=== PATIENT | male | born 1945 | race Caucasian/White ===

== ENCOUNTER → 2016-09-08 | Outpatient (CLI) | payer OTHER, BC ==
[~2016-09-08] MED LIST: ATEN-173 PO; ATEN50TA8 PO; ATOR-22 PO; HYDR-5688 PO
--- NOTE | 2016-09-08 10:57 | DIAGNOSTIC IMAGING REPORT ---
EXAMINATION: RENAL ULTRASOUND CLINICAL HISTORY: Kidney stones. COMPARISON STUDY: CT scan dated 07/08/2014 FINDINGS: The right kidney measures 11.9 cm. The left kidney measures 12.1 cm. There is no evidence of hydronephrosis. There is a 14 mm lower pole right renal cyst. There is a 26 mm upper pole left renal cyst and 19 mm mid pole left renal cyst. There are no shadowing foci suspicious for calculi. The bladder was not well-distended. Bilateral ureteral jets were visualized. IMPRESSION : 1. Bilateral renal cysts 2. No evidence of hydronephrosis 3. No calculi identified ultrasonographically Electronically signed by: Ryan Oreilly M.D. 09/08/2016 10:56 AM Dictated Date/Time: 09/08/2016 10:55 AM
== END | disposition home or self-care (01) ==
LOC: C.ULTRBC 10:17
PROVIDERS: ATTEND Family Medicine
DX: N28.1 Cyst of kidney, acquired (principal); Z87.442 Personal history of urinary calculi

== ENCOUNTER → 2016-09-23 | Outpatient (CLI) | payer OTHER, BC ==
--- NOTE | 2016-09-23 16:45 | DIAGNOSTIC IMAGING REPORT ---
LEFT RIBS UNILATERAL WITH PA CHEST CLINICAL HISTORY: LBP pain COMPARISON STUDY: None FINDINGS: Negative left ribs. Negative chest. IMPRESSION: Negative study Electronically signed by: Zachariah Pena M.D. 09/23/2016 4:43 PM Dictated Date/Time: 09/23/2016 4:42 PM
== END | disposition home or self-care (01) ==
LOC: C.RAD1850 16:24
PROVIDERS: ATTEND Student in an Organized Health Care Education/Training Program
DX: M54.5 Low back pain (principal)

== ENCOUNTER 2016-10-20 14:19 | Emergency (ER) | payer OTHER, BC ==
[~2016-10-20] VITALS: Ht 185.4 cm; Wt 96.8 kg
[~2016-10-20 14:19] MED LIST changes: -ATEN50TA8 PO; -HYDR-5688 PO
[2016-10-20 14:26] VITALS: TEMP 36.7; Ht 185.4 cm; Wt 96.8 kg
--- NOTE | 2016-10-20 15:02 | DIAGNOSTIC IMAGING REPORT ---
LEFT RIBS UNILATERAL WITH PA CHEST CLINICAL HISTORY: fall L rib pain trauma. Pain. COMPARISON STUDY: 09/23/2016 FINDINGS: Nondisplaced cortical fracture left eighth ninth 10th and 11th ribs. The remaining ribs are unremarkable. No evidence of pneumothorax. IMPRESSION: Nondisplaced fractures left eighth ninth 10th and 11th ribs. No evidence for pneumothorax. Electronically signed by: Zachariah Pena M.D. 10/20/2016 3:00 PM Dictated Date/Time: 10/20/2016 2:58 PM
--- NOTE | 2016-10-20 15:08 | EMERGENCY ROOM VISIT NOTE ---
ED Visit Note First contact with patient: 14:29 Staff note: I have reviewed the Patients chart and have discussed this case with my PA. I generally agree with the ED note and findings.
[2016-10-20] MEDS ORDERED: ATEN50TA8 PO (15:17)
[2016-10-20 15:24] VITALS: BP 122/68; PULSE 71; O2SAT 95
[2016-10-20] MEDS ORDERED: HYDR-5688 PO (15:25)
--- NOTE | 2016-10-21 10:45 | EMERGENCY ROOM VISIT NOTE ---
ED Visit Note First contact with patient: 14:29 Chief Complaint: Left rib pain. History of Present Illness: Mr. Vaughn is a 70-year-old white male who ambulates into the ED complaining of left sided rib pain. Patient reports approximately 7 AM this morning, approximately 7 hours ago, he was pulling himself out of the tub when his feet slipped and he fell back into the tub striking his left lateral ribs on the side of the tub. Since that time he reports she's been having left sided rib pain. Currently he describes the pain as a sharp sensation. He rates his discomfort 7 /10. His pain is nonradiating. His pain worsens with palpation and deep inspiration. He has not identified any alleviating factors related to the pain. He reports he has not taken any medication for pain prior to arrival at the hospital. He denies any associated symptoms including fevers, chills, sweats, cough, shortness of breath, wheezing, chest pain, abdominal pain, nausea , vomiting, bloody urine, bloody stools, back pain, flank pain. Review of Systems: As noted above in history of present illness. 8 body systems were reviewed and found to be negative as noted above. Past Medical History: Urinary symptoms, kidney stones, hypertension, dyslipidemia, status post cholecystectomy, unspecified hip replacement, unspecified lumbar back surgery. Current Medications: Atenolol, Lipitor. Allergies to Medications: Patient denies. Social History: Patient is currently retired; he feels safe in his home environment; he denies tobacco use; he admits to alcohol use. Physical Examination: Vital Signs: Date Time Temp Pulse Resp B/P Pulse Ox O2 Delivery O2 Flow Rate FiO2 10/20/16 15:24 71 18 122/68 95 Room Air 10/20/16 14:26 36.7 72 16 121/74 94 Room Air GENERAL: 70-year-old male in moderate distress due to pain, nontoxic-appearing, afebrile and hemodynamically stable. NEUROLOGICAL: Awake, alert and oriented to person, place and time. Answering questions appropriately and following commands. Normal gait. Good hand eye coordination. No focal motor or sensory deficits. SKIN: Warm, dry and pink. No soft tissue trauma noted. HEENT: Atraumatic and normocephalic. BACK: No tenderness over the bony cervical, thoracic and lumbar spine. No CVA tenderness. THORAX: Lungs sounds are clear to auscultation and equal bilaterally with symmetrical chest wall. No wheezing, rales or rhonchi. Moderate tenderness over the lateral left chest wall from ribs 5 through 12. I do not appreciate any bony deformity, bony crepitus or subcutaneous air. There is no increased respiratory effort or rate. HEART: Regular rate and rhythm. No gallops, rubs or murmurs are appreciated. ABDOMEN: Flat, soft and nontender. Positive bowel sounds in all quadrants. No guarding, rigidity or organomegaly. EXTREMITIES: Moves all extremities well on command and with purpose. All distal neurovascular statuses are intact and equal bilaterally. ED Course: Patient is assessed as noted above. Patient was offered pain medications and refused. PA Chest with Left Rib X-Rays: Were read by myself and the radiologist showing no acute infiltrates, effusions or pneumothorax. Normal heart silhouette. Nondisplaced fractures of the lateral aspect of the eighth, ninth, 10th and 11th ribs. Patient's case was reviewed with Dr. Porter; independently assessed the patient we agreed on diagnostic approach, treatment, disposition and plan. Patient was educated about tonight's findings and instructed on his treatment plan; he verbalized understanding and agreement with this plan. Clinical Impression: Left sided rib fractures. Disposition: Patient discharged home in stable condition; prior to departure he was reassessed and subjectively reported he was feeling better and rated his discomfort 4/10. Plan: Comfort measures were discussed with the patient including rest, ice and a sliding pain medication scale of ibuprofen, acetaminophen and [place]; appropriate narcotic precautions were discussed with the patient. Patient was given an inspirometer and instructed on their use. Patient was encouraged to follow-up with family physician for recheck in 3-4 days. Patient was encouraged return the ED for worsening pain, fevers, cough, wheezing , shortness of breath or any new/concerning symptoms.
== END 2016-10-20 15:26 | disposition home or self-care (01) ==
LOC: C.EDB 14:21 → C.EDD 15:26
DX: S22.42XA Multiple fractures of ribs, left side, initial encounter for closed fracture (principal); W18.2XXA Fall in (into) shower or empty bathtub, initial encounter; Y92.002 Bathroom of unspecified non-institutional (private) residence as the place of occurrence of the external cause; Y93.E1 Activity, personal bathing and showering; I10 Essential (primary) hypertension; E78.5 Hyperlipidemia, unspecified; Z87.442 Personal history of urinary calculi

== ENCOUNTER → 2017-09-29 | Outpatient (CLI) | payer OTHER, BC ==
[~2017-09-29] MED LIST changes: -ATEN-173 PO; +ATEN50TA8 PO
--- NOTE | 2017-09-29 18:05 | DOBUTAMINE ECHO ---
*NOTICE TO RECEIVING [employer] This information is strictly Confidential and protected under [place] law. [place] law prohibits you from making any further disclosure of this information unless further disclosure is expressly permitted by the written consent of the person to whom it pertains or is authorized by law. A general authorization for the release of medical or other information is not sufficient for this purpose. Hospital accepts no responsibility if the information is made available to any other person, INCLUDING THE PATIENT. Interpretation Summary * Name: BOOM WYATT Study Date: 09/29/2017 08:29 AM BP: 137/80 mmHg * Patient Location: [facility] HR: 62 * : 1945 (M/d/yyyy) Gender: Male Height: 72 in * Age: 71 yrs Ethnicity: [place] Weight: 216 lb * Ordering Physician: Justin Baker * Referring Physician: Justin Baker * Performed By: Damari Killian RDCS * * Reason For Study: CHEST PAIN * BSA: 2.2 m2 * -- Conclusions -- * There is mild concentric left ventricular hypertrophy. * Left ventricular systolic function is normal. * Grade I diastolic dysfunction, (abnormal relaxation pattern). * Right ventricular systolic pressure is normal. * Hypertensive response to exercise * Abnormal EKG response exercise without development of wall motion abnormalities suggesting a low risk study for inducible ischemia. Procedure Details * ECHOEX, CPT #06200 Left Ventricular Findings with Stress * Hypertensive response to exercise Abnormal EKG response exercise without development of wall motion abnormalities suggesting a low risk study for inducible ischemia. Left Ventricle * The left ventricle is normal in size. * There is mild concentric left ventricular hypertrophy. * Ejection Fraction = 55-60%. * Left ventricular systolic function is normal. * Grade I diastolic dysfunction, (abnormal relaxation pattern). * The left ventricular wall motion is normal at rest. Right Ventricle * The right ventricle is normal in size and function. * The right ventricular systolic function is normal as assessed by tricuspid annular plane systolic excursion (TAPSE) (normal >1.5 cm). Atria * The left atrial size is normal. * Right atrial size is normal. Mitral Valve * The mitral valve anatomy is normal. * Significant mitral regurgitation is absent. Tricuspid Valve * The tricuspid valve is not well visualized, but is grossly normal. * There is mild tricuspid regurgitation. * Right ventricular systolic pressure is normal. Aortic Valve * The aortic valve is normal in structure and function. * The aortic valve is trileaflet. * No hemodynamically significant valvular aortic stenosis. * There is no significant aortic regurgitation. Great Vessels * The aortic root is normal size. Pericardium * There is no pericardial effusion. Stress Parameters * Normal baseline electrocardiogram. * [address] segment depression at peak exertion * The stress portion of this study was personally supervised by the undersigned interpreting physician. * Rest heart rate was '60' BPM. * Rest blood pressure was '137/80' * Maximum heart rate achieved was 137 bpm. * Maximum heart rate was 91 % of maximum age-predicted heart rate. * Maximum blood pressure was '203/79' * Total exercise time was '6:11' * Maximum exercise MET level achieved was '7.20' METS * Maximum treadmill speed was '3.40' miles per hour. * Maximum treadmill elevation was '14'% grade. * Exercise was terminated due to 'ACHIEVING TARGET HR' Left Ventricular Findings with Stress * Baseline EKG was normal There was [address] segment depression at peak exertion Baseline echocardiogram was normal There was normal augmentation of all [place] without development of inducible wall motion abnormalities at peak exertion There is a hypertensive response to exercise No arrhythmias Test was stopped due to dyspnea Cheung treadmill score: 1 (moderate risk) MMode 2D Measurements and Calculations IVSd 1.2 cm IVSs 1.7 cm LVIDd 4.5 cm LVIDs 3.1 cm LVPWd 1.5 cm LVPWs 2.3 cm IVS/LVPW 0.81 FS 31.7 % EDV(Teich) 93.4 ml ESV(Teich) 37.6 ml EF(Teich) 59.8 % EDV(cubed) 92.4 ml ESV(cubed) 29.5 ml EF(cubed) 68.1 % % IVS thick 42.9 % % LVPW thick 55.0 % LV mass(C)d 234.6 grams LV mass(C)dI 106.6 grams/m\S\2 LV mass(C)s 274.0 grams LV mass(C)sI 124.5 grams/m\S\2 SV(Teich) 55.9 ml SI(Teich) 25.4 ml/m\S\2 SV(cubed) 62.9 ml SI(cubed) 28.6 ml/m\S\2 Ao root diam 3.4 cm Ao root area 9.3 cm\S\2 LA dimension 3.7 cm LA/Ao 1.1 LVAd ap2 30.5 cm\S\2 LVLd ap2 7.8 cm EDV(MOD-sp2) 96.3 ml EDV(sp2-el) 101.0 ml LVAs ap2 17.7 cm\S\2 LVLs ap2 6.6 cm ESV(MOD-sp2) 37.8 ml ESV(sp2-el) 40.1 ml EF(MOD-sp2) 60.8 % EF(sp2-el) 60.3 % SV(MOD-sp2) 58.5 ml SI(MOD-sp2) 26.6 ml/m\S\2 SV(sp2-el) 60.9 ml SI(sp2-el) 27.7 ml/m\S\2 Doppler Measurements and Calculations MV E max delia 66.1 cm/sec MV A max delia 89.8 cm/sec MV E/A 0.74 MV dec time 0.29 sec Ao V2 max 113.0 cm/sec Ao max PG 5.1 mmHg Ao max PG (full) 3.7 mmHg LV V1 max PG 1.4 mmHg LV V1 max 59.3 cm/sec TR max delia 185.5 cm/sec
== END | disposition home or self-care (01) ==
LOC: C.CPL 08:58
PROVIDERS: ATTEND Family Medicine
DX: R07.9 Chest pain, unspecified (principal)

== ENCOUNTER → 2017-10-20 | Outpatient (CLI) | payer OTHER, BC | END | disposition home or self-care (01) | LOC: C.PATHSPEC 17:28 | PROVIDERS: ATTEND Urology | DX: N20.0 Calculus of kidney (principal); R31.0 Gross hematuria; R39.15 Urgency of urination; N40.1 Benign prostatic hyperplasia with lower urinary tract symptoms ==

== ENCOUNTER → 2017-10-26 | Outpatient (CLI) | payer OTHER, BC ==
[2017-10-26 16:50] LABS: ALBUMIN 3.9 gm/dl (3.4-5.0); ALT/SGPT 37 U/L (12-78); BLOOD UREA NITROGEN 21 mg/dl (7-18); CALCIUM 9.1 mg/dl (8.5-10.1); CARBON DIOXIDE 26 mmol/L (21-32); CREATININE 1.15 mg/dl (0.60-1.40); GLUCOSE 124 mg/dl (70-99); POTASSIUM 4.1 mmol/L (3.5-5.1); SODIUM 141 mmol/L (136-145)
[2017-10-26 16:55] LABS: ALKALINE PHOSPHATASE 76 U/L (45-117); AST/SGOT 18 U/L (15-37); TOTAL PROTEIN 7.4 gm/dl (6.4-8.2)
== END | disposition home or self-care (01) ==
LOC: C.LABBFT 15:29
PROVIDERS: ATTEND Urology
DX: N40.1 Benign prostatic hyperplasia with lower urinary tract symptoms (principal); R31.0 Gross hematuria; N20.0 Calculus of kidney; R39.15 Urgency of urination

== ENCOUNTER → 2017-11-10 | Outpatient (CLI) | payer OTHER, BC ==
[~2017-11-10] MED LIST changes: +OPTIRAY 320 IV PRN
--- NOTE | 2017-11-10 11:18 | DIAGNOSTIC IMAGING REPORT ---
CT UROGRAM CLINICAL HISTORY: Hematuria. Nephrolithiasis. COMPARISON STUDY: Abdominal CT dated 07/16/2014. TECHNIQUE: Before and following the IV administration of 120 cc of Optiray 320, CT urogram of the abdomen and pelvis is performed from the lung bases to the proximal femora. Images are reviewed in the axial, sagittal, and coronal planes. IV contrast was administered without complication. A dose lowering technique was utilized adhering to the principles of ALARA. The unenhanced series is degraded by streak artifact from the right arm which could not be elevated above the abdomen. CT DOSE: 1868.14 mGycm FINDINGS: Lung bases: The heart is normal in size and without pericardial effusion. The coronary arteries are densely calcified. A small fat-containing Bochdalek hernia is seen at the left lung base. The lung bases are otherwise clear. Liver: The contrast-enhanced liver is normal in size, contour, and attenuation. There is no intrahepatic biliary ductal dilatation. The hepatic veins and portal veins are patent. Gallbladder: Surgically absent noting clips in the gallbladder fossa. Spleen: Normal in size and attenuation. Pancreas: Unremarkable. Adrenal glands: Unremarkable. Kidneys and ureters: The contrast enhanced kidneys are atrophic and without hydronephrosis. There are least 3 small nonobstructing right renal calculi measuring up to 4 mm. A 3 mm nonobstructing calculus is seen in the lower pole of the left kidney. The kidneys enhance and excrete symmetrically. There is no enhancing renal cortical mass lesion identified. Small bilateral renal cysts measure up to 3.0 cm. There is no evidence of urothelial lesion within the renal pelvis bilaterally or along the course of either ureter. Abdominal vasculature: The abdominal aorta is normal in course and caliber noting moderate atherosclerotic calcification. Bowel: There is mild colonic diverticulosis without CT evidence of acute diverticulitis. No bowel obstruction is identified. The appendix is well-visualized and normal. Peritoneum: There is no intraperitoneal free air or abdominal ascites. There is a small fat-containing umbilical hernia. Lymphadenopathy: None. Pelvic viscera: Evaluation of the pelvis is degraded by streak artifact from a right hip arthroplasty. The bladder, prostate, and seminal vesicles are normal as visualized. Skeletal structures: The skeletal structures are osteopenic. Degenerative changes noted throughout the lumbar spine. There are postoperative changes from laminectomy and posterior fusion from L4 -S1. No lytic or blastic lesions are seen. Right hip arthroplasty is in place. IMPRESSION: 1. There are bilateral nonobstructing renal calculi. 2. The kidneys demonstrate cortical atrophy and are without hydronephrosis. 3. There is no enhancing renal cortical mass. No evidence of urothelial lesion is seen in either kidney or along the course of the ureters. 4. The bladder is normal as visualized. 5. Mild colonic diverticulosis without CT evidence of acute diverticulitis. 6. Additional findings as above. Electronically signed by: Jan Canela M.D. 11/10/2017 11:16 AM Dictated Date/Time: 11/10/2017 11:05 AM
== END | disposition home or self-care (01) ==
LOC: C.CTS 10:26
PROVIDERS: ATTEND Urology
DX: N20.0 Calculus of kidney (principal); R31.0 Gross hematuria; N26.1 Atrophy of kidney (terminal)

== ENCOUNTER 2024-03-26 16:31 | Observation (INO) ==
--- NOTE | 2024-03-26 16:53 | Emergency Department Note ---
Impression & Plan Stroke-like symptoms, Hypomagnesemia, Cerebral aneurysm ED Provider Note NAME: BOOM WYATT Jr AGE: 78 SEX: M : 1945 ARRIVES VIA: Walk-In INFORMANT: Patient, triage note ED PROVIDER(S): Alek Carlton MD CHIEF COMPLAINT: Hand weakness, numbness MEDICAL DECISION MAKING: Patient presents due to concern for hand weakness and numbness. IV was established and blood work is obtained along CT head and CT angiography of the head and neck. Patient has a normal white count mild anemia hemoglobin of 13.6 with a normal platelet count. Kidney function was unremarkable. Magnesium of 1.6. CT head and angiography is negative for ICH or obvious stroke. M1 saccular aneurysm noted. I did speak with on-call neurology Dr. Martin who stated that this may be followed no acute treatment required at this time. Patient based on ABCD 2 score is moderate risk patient was ordered aspirin 324. I did speak with the on-call hospital service Maynor Shields PA-C and Dr. Rodgers Discussion w/ other healthcare providers: Maynor Shields PA-C and Dr. Rodgers. Prior /Outside records reviewed: None Differential diagnosis: [Infection, dehydration, metabolic abnormality, hypo/hyperglycemia, electrolyte imbalance, anemia, UTI, pneumonia, thyroid dysfunction among others were considered. Diagnostics, as interpreted by me: ECG: Normal sinus rhythm, rate of 73, normal pulse, normal axis. No significant change for comparison August 01, 2019 Cardiac monitoring: An order was placed for continuous cardiac monitoring. The monitor shows a rate of 75 with sinus rhythm. Patient was placed on pulse oximetry Medical decision rules: ABCD2 score Imaging studies: I informally interpreted the patient's CT head does not show obvious ICH with formal report to follow. HPI: Patient presents due to concern for left upper extremity decree sensation and cramping with associated heaviness that began around 1 hour prior to arrival. The episode lasted approximately 5 minutes in duration. The patient reports that he felt as though his arm was very big and heavy at the time that this occurred. He denies any trauma. No increase in activity or overuse. The patient denies any prior history of stroke or mini stroke no chest pains or shortness of breath. Patient does take something for cholesterol but does not take a baby aspirin. He also does report that he had a prior history of shingles to the left axilla as well as the history of a lot of golf playing and is unsure as amount of this is contributory. The patient states that he was unable to make a fist and felt like he was holding a softball at the time of this occurred. Patient denies any slurred speech or facial droop. He did have a brief episode that was may be seconds of decree sensation in the left face. PAST MEDICAL HISTORY: See Below PAST SURGICAL HISTORY: See Below SOCIAL HISTORY: See Below HOME MEDICATIONS: See Below ALLERGIES: See Below VITALS: See Below PHYSICAL EXAMINATION: GENERAL: NAD, non-toxic. EYE EXAM: Normal conjunctiva. PERRL, no anisocoria and EOM's grossly intact w/o pain. OROPHARYNX: Moist mucus membranes, grossly normal dentition. NECK: Trachea midline, no stridor. LUNGS: Clear to auscultation. Normal chest wall mechanics. HEART: NSR, no MRG. ABDOMEN: Abdomen soft, non-tender, no masses, no rebound or guarding. BACK: No CVA TTP. SKIN: No rashes and no bruising. UPPER EXTREMITIES: Upper extremities are grossly normal. LOWER EXTREMITIES: Grossly normal, no edema. NEURO EXAM: A&O x3, cranial nerves II-XII grossly intact, normal speech, moves all 4 extremities. Past Med/Surg History Problem List (Updated 03/26/24 @ 22:29 by Alek Carlton MD) Cerebral aneurysm (Acute) Hypomagnesemia (Acute) Stroke-like symptoms (Acute) Urinary frequency Bilateral kidney stones Hypertension (Chronic) Dyslipidemia (Chronic) Insomnia (Chronic) BPH (benign prostatic hyperplasia) (Chronic) Followed by urology. Erectile dysfunction Medical History History of skin cancer removed 12 years ago Frequent unifocal PVCs Laryngopharyngeal reflux Paralysis of right vocal fold Dysphonia Posterior glottic stenosis Evaluated by ENT for dysphonia within last 2 years, found to have significant post glottic stenosis. Should be evaluated emergently for any respiratory sxs if should arise in the future. Continuing workup with imaging Nephrolithiasis passed on own and also has current stones, no issues with them currently Urinary urgency Post herpetic neuralgia Surgical History History of hip replacement, total right, 2013 History of back surgery 2014, L3-5 Fusion History of cholecystectomy Family History Mother Breast cancer Father Dementia Hearing loss Brother Hearing loss Kidney stones Myocardial infarction Daughter Kidney stones Other No family history of adverse response to anesthesia No family history of bleeding disorder Denies family history of Ovarian cancer Prostate cancer Diabetes Heart disease Lung cancer Colorectal cancer Hypertension Stroke Asthma Social History Smoking Status: Never smoker Second Hand Exposure: No; Do You Dip or Chew Tobacco: No; Hx Alcohol Use: Yes Alcohol type: beer Alcohol Intake Frequency: 2-3 x/Week Alcohol Intake Frequency Comment: beer every other day Hx Substance Use: No Preferred Language: Croatian Visual Impairment: Limited Hearing Ability: Hard of Hearing Retail Receiving Clerk Required: No Beliefs That Will Affect Care: None marital status: Current Living Situation: Alone current occupational status: retired How many Children do You have: 3 Feels Safe at Home: Yes Childhood Exposure to Second-Hand Smoke: No Diet: regular caffeine: Yes (soda occasionally ) Dental Care, Regularly: Yes Physical Activity Frequency: Daily Physical Activity Frequency Comment: walks and play golf in summer Seatbelt Use: always Sunscreen Use: No Assistive Devices: None Allergies Allergies Allergy/AdvReac Type Severity Reaction Status Date / Time No Known Drug Allergies Allergy Verified 03/26/24 18:34 Home Meds Home Medications Medication Instructions Recorded Confirmed atorvastatin 20 mg tablet 0 mg PO QAM 03/26/24 03/26/24 Previous Rx's Medication Instructions Recorded atenolol 50 mg tablet 25 mg (1/2 x 50 mg) PO QPM #45 tabs 07/30/23 finasteride 5 mg tablet 5 mg PO QAM #90 tabs 12/03/23 omeprazole 20 mg tablet,delayed 20 mg PO BID PRN K21.9 #180 tabs 01/18/24 release zolpidem 10 mg tablet 10 mg PO ONCE PRN insomnia #30 tabs 01/18/24 tamsulosin 0.4 mg capsule 0.4 mg PO QPM #90 caps 01/19/24 Results & Data (ED) Vital Signs Vital Signs - 24 hr 03/26/24 16:36 03/26/24 16:53 03/26/24 17:01 Temperature 36.6 C Temperature Source Temporal Artery Scan Pulse Rate 77 68 Pulse Rate [Apical] Pulse Rhythm Regular Respiratory Rate 16 18 Respiratory Effort / Characteristics Non-Labored Spontaneous Non-Labored Respiratory Depth Normal Normal Respiratory Pattern Regular Blood Pressure 141/78 H Blood Pressure [Right Arm] Blood Pressure Mean 99 Blood Pressure Mean [Right Arm] Blood Pressure Position [Right Arm] Pulse Oximetry 94 94 Oxygen Delivery Method Room Air Room Air Sepsis Recent Fever Within 48 Hours No Sepsis New/Unexplained Change in Mental Status N/A Sepsis Action Taken by Nursing No Action Required 03/26/24 17:05 03/26/24 18:37 03/26/24 19:33 Temperature Temperature Source Pulse Rate 68 66 Pulse Rate [Apical] 69 Pulse Rhythm Respiratory Rate 21 20 Respiratory Effort / Characteristics Non-Labored Spontaneous Respiratory Depth Normal Respiratory Pattern Regular Blood Pressure 139/76 Blood Pressure [Right Arm] 155/81 H Blood Pressure Mean 97 Blood Pressure Mean [Right Arm] 105 Blood Pressure Position [Right Arm] Semi-fowlers Pulse Oximetry 94 96 Oxygen Delivery Method Room Air Sepsis Recent Fever Within 48 Hours Sepsis New/Unexplained Change in Mental Status Sepsis Action Taken by Nursing 03/26/24 21:00 Temperature Temperature Source Pulse Rate 62 Pulse Rate [Apical] Pulse Rhythm Respiratory Rate 18 Respiratory Effort / Characteristics Respiratory Depth Respiratory Pattern Blood Pressure 144/88 H Blood Pressure [Right Arm] Blood Pressure Mean 118 Blood Pressure Mean [Right Arm] Blood Pressure Position [Right Arm] Pulse Oximetry 95 Oxygen Delivery Method Sepsis Recent Fever Within 48 Hours Sepsis New/Unexplained Change in Mental Status Sepsis Action Taken by [facility] Medications Current Medication List: was personally reviewed by me Laboratory Data Attestation: I reviewed the patient's lab results. 03/26/24 17:03 03/26/24 17:03 Lab Results 03/26/24 03/26/24 Range/Units 17:03 17:24 WBC 6.26 (4.8-10.8) K/ul RBC 4.36 L (4.70-6.10) M/uL Hgb 13.6 L (14.0-18.0) g/dl Hct 39.7 L (42.0-52.0) % MCV 91.1 (80.0-100.0) fL MCH 31.2 (25.0-34.0) pg MCHC 34.3 (32.0-36.0) g/dL RDW Std Deviation 42.2 (36.4-46.3) fL RDW Coeff of Poli 12.8 (11.5-14.5) % Plt Count 214 (130-400) K/uL MPV 10.1 (9.4-12.4) fL Immature Gran % (Auto) 0.3 % Neut % (Auto) 56.2 % Lymph % (Auto) 33.7 % [place] % (Auto) 8.1 % Eos % (Auto) 1.1 % Baso % (Auto) 0.6 % Neut # (Auto) 3.51 (1.40-6.50) K/uL Lymph # (Auto) 2.11 (1.20-3.40) K/uL [place] # (Auto) 0.51 (0.11-0.59) K/uL Eos # (Auto) 0.07 (0.00-0.50) K/uL Baso # (Auto) 0.04 (0.00-0.20) K/uL Immature Gran # (Auto) 0.02 (0.01-0.20) K/uL PT 10.5 (9.0-12.0) Seconds INR 1.0 (0.9-1.1) APTT 23 (21-31) Seconds PTT Ratio 0.9 Sodium 140 (136-145) mmol/L Potassium 3.9 (3.5-5.1) mmol/L Chloride 107 (98-107) mmol/L Carbon Dioxide 24 (21-32) mmol/L Anion Gap 9 (3-11) BUN 18 (6-23) mg/dl Creatinine 0.95 (0.6-1.4) mg/dl Est Cr Clr Drug Dosing 80.9 ml/min Est GFR ( Amer) 89.1 ml/min Est GFR (Non-Af Amer) 76.9 ml/min BUN/Creatinine Ratio 18.9 (10-20) Glucose 106 H (70-99(Fasting)) mg/dl POC Glucose 116 H (70-99) mg/dl Calcium 9.0 (8.6-10.3) mg/dl Magnesium 1.6 L (1.7-2.4) mg/dl Total Bilirubin 0.3 (0.2-1.0) mg/dl AST 16 (13-39) U/L ALT 20 (7-52) U/L Alkaline Phosphatase 92 (34-104) U/L Troponin I High Sens 7.2 (0-20) pg/ml Total Protein 7.4 (6.0-8.3) gm/dl Albumin 4.3 (3.4-5.0) gm/dl Globulin 3.1 (2.5-4.0) gm/dl Albumin/Globulin Ratio 1.4 (0.9-2) Administered Medications Magnesium Sulfate/Dextrose (Magnesium Sulfate / D5w) 1 gm in 100 mls @ 50 mls/hr IV Q2H LEIGHANN Stop: 03/26/24 23:59 Last Admin: 03/26/24 22:10 Dose: 50 mls/hr Documented By: Infusion: 03/26/24 22:10 Dose: Infused Documented By: Admin: 03/26/24 20:07 Dose: 50 mls/hr Documented By: GARCIA Discontinued Medications Aspirin (Aspirin Chew 324 Mg) 324 mg PO NOW STA Stop: 03/26/24 19:36 Last Admin: 03/26/24 20:06 Dose: 324 mg Documented By: GARCIA Ioversol (Optiray 320 125ml) 118 ml IV ONCE ONE Stop: 03/26/24 17:56 Last Admin: 03/26/24 17:55 Dose: 118 ml Documented By: DARSHANA Imaging Data Radiologist's Impression: Chest X-Ray 03/26/24 16:54 XR chest 1V portable HISTORY: 78 years-old Male stroke alert acute strokelike symptoms COMPARISON: Chest CT 05/24/2019 TECHNIQUE: AP view the chest FINDINGS: Cardiomediastinal and hilar silhouettes are within normal limits. Atherosclerosis of aorta. No pneumothorax, pleural effusion or airspace consolidation. Spondylitic spurring of the spine. IMPRESSION: No acute process. ACT 112: Negative or not required by law. The above report was generated using voice recognition software. It may contain grammatical, syntax or spelling errors. Electronically signed by: Maximo Cespedes M.D. 03/26/2024 5:[address] 03/26/24 17:12 CT angio head w con, CT angio neck with con, CT head/brain wo con CLINICAL HISTORY: 78 years-old Male with neuro deficit, acute stroke suspected. Acute stroke like symptoms COMPARISON STUDY: None TECHNIQUE: Unenhanced axial CT scan of the brain is performed. Subsequently, following the IV administration of 118 cc of Optiray, CT angiogram of the head and neck was performed from the aortic arch to the skull apex. Images are reviewed in the axial, sagittal, and coronal planes. 3-D MIPS images are created and assessed. IV contrast was administered without complication. All measurements were obtained according to NASCET criteria. A dose lowering technique was utilized adhering to the principles of ALARA. CT DOSE: 1189.8 mGy.cm FINDINGS: CT BRAIN: There is no acute intracranial hemorrhage, midline shift, hydrocephalus, intracranial mass, territorial ischemia or abnormal extra-axial collections. No abnormal intra-axial or extra-axial enhancement. Partially imaged polypoid mucosal thickening of the dependent right maxillary sinus. Mastoid air cells are clear. Unremarkable soft tissues and orbits.. No calvarial fracture. Paranasal sinuses are clear. CT ANGIOGRAM OF THE HEAD AND NECK: Three-vessel morphology of the thoracic aortic arch. Patent common carotid arteries. Prominent atherosclerotic plaque the carotid bulbs. Less than 50% stenosis on the left and approximately 50% stenosis on the right. The bilateral anterior and middle cerebral arteries are also patent. 3 mm saccular aneurysm involves the distal right M1 segment, image 140 series 5. Dominant left vertebral artery. Moderate atherosclerosis of the origin of the right lateral vertebral arteries. The vertebrobasilar system and posterior cerebral arteries are widely patent. Dominant left vertebral artery. Dural sinuses appear patent. No pneumothorax identified. No acute fracture. IMPRESSION: 1. No acute intracranial abnormality identified. 2. No high-grade stenosis, arterial occlusion or dissection identified. 3. 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 ACT 112: Negative or not required by law. The above report was generated using voice recognition software. It may contain grammatical, syntax or spelling errors. Electronically signed by: Maximo Cespedes M.D. 03/26/2024 6:41 PM Head CTA 03/26/24 17:12 CT angio head w con, CT angio neck with con, CT head/brain wo con CLINICAL HISTORY: 78 years-old Male with neuro deficit, acute stroke suspected. Acute stroke like symptoms COMPARISON STUDY: None TECHNIQUE: Unenhanced axial CT scan of the brain is performed. Subsequently, following the IV administration of 118 cc of Optiray, CT angiogram of the head and neck was performed from the aortic arch to the skull apex. Images are reviewed in the axial, sagittal, and coronal planes. 3-D MIPS images are created and assessed. IV contrast was administered without complication. All measurements were obtained according to NASCET criteria. A dose lowering technique was utilized adhering to the principles of ALARA. CT DOSE: 1189.8 mGy.cm FINDINGS: CT BRAIN: There is no acute intracranial hemorrhage, midline shift, hydrocephalus, intracranial mass, territorial ischemia or abnormal extra-axial collections. No abnormal intra-axial or extra-axial enhancement. Partially imaged polypoid mucosal thickening of the dependent right maxillary sinus. Mastoid air cells are clear. Unremarkable soft tissues and orbits.. No calvarial fracture. Paranasal sinuses are clear. CT ANGIOGRAM OF THE HEAD AND NECK: Three-vessel morphology of the thoracic aortic arch. Patent common carotid arteries. Prominent atherosclerotic plaque the carotid bulbs. Less than 50% stenosis on the left and approximately 50% stenosis on the right. The bilateral anterior and middle cerebral arteries are also patent. 3 mm saccular aneurysm involves the distal right M1 segment, image 140 series 5. Dominant left vertebral artery. Moderate atherosclerosis of the origin of the right lateral vertebral arteries. The vertebrobasilar system and posterior cerebral arteries are widely patent. Dominant left vertebral artery. Dural sinuses appear patent. No pneumothorax identified. No acute fracture. IMPRESSION: 1. No acute intracranial abnormality identified. 2. No high-grade stenosis, arterial occlusion or dissection identified. 3. 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 ACT 112: Negative or not required by law. The above report was generated using voice recognition software. It may contain grammatical, syntax or spelling errors. Electronically signed by: Maximo Cespedes M.D. 03/26/2024 6:41 PM Neck CTA 03/26/24 17:12 CT angio head w con, CT angio neck with con, CT head/brain wo con CLINICAL HISTORY: 78 years-old Male with neuro deficit, acute stroke suspected. Acute stroke like symptoms COMPARISON STUDY: None TECHNIQUE: Unenhanced axial CT scan of the brain is performed. Subsequently, following the IV administration of 118 cc of Optiray, CT angiogram of the head and neck was performed from the aortic arch to the skull apex. Images are reviewed in the axial, sagittal, and coronal planes. 3-D MIPS images are created and assessed. IV contrast was administered without complication. All measurements were obtained according to NASCET criteria. A dose lowering technique was utilized adhering to the principles of ALARA. CT DOSE: 1189.8 mGy.cm FINDINGS: CT BRAIN: There is no acute intracranial hemorrhage, midline shift, hydrocephalus, intracranial mass, territorial ischemia or abnormal extra-axial collections. No abnormal intra-axial or extra-axial enhancement. Partially imaged polypoid mucosal thickening of the dependent right maxillary sinus. Mastoid air cells are clear. Unremarkable soft tissues and orbits.. No calvarial fracture. Paranasal sinuses are clear. CT ANGIOGRAM OF THE HEAD AND NECK: Three-vessel morphology of the thoracic aortic arch. Patent common carotid arteries. Prominent atherosclerotic plaque the carotid bulbs. Less than 50% stenosis on the left and approximately 50% stenosis on the right. The bilateral anterior and middle cerebral arteries are also patent. 3 mm saccular aneurysm involves the distal right M1 segment, image 140 series 5. Dominant left vertebral artery. Moderate atherosclerosis of the origin of the right lateral vertebral arteries. The vertebrobasilar system and posterior cerebral arteries are widely patent. Dominant left vertebral artery. Dural sinuses appear patent. No pneumothorax identified. No acute fracture. IMPRESSION: 1. No acute intracranial abnormality identified. 2. No high-grade stenosis, arterial occlusion or dissection identified. 3. 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 ACT 112: Negative or not required by law. The above report was generated using voice recognition software. It may contain grammatical, syntax or spelling errors. Electronically signed by: Maximo Cespedes M.D. 03/26/2024 6:41 PM Discharge Plan Visit Data Chief Complaint: Arm Pain Stated Complaint: LT ARM NUMB AND SIDE OF FACE ED Provider: Alek Carlton Discharge Problem: Stroke-like symptoms, Hypomagnesemia, Cerebral aneurysm Forms Stand Alone Forms: My [facility] Prescriptions Prescriptions: No Action atenolol 50 mg tablet 25 mg PO QPM Qty: 45 3RF omeprazole 20 mg tablet,delayed release (DR/EC) 20 mg PO BID PRN (Reason: K21.9) Qty: 180 3RF Rx Instructions: Take 1 capsule by mouth twice daily 30 minutes before a meal with protein zolpidem 10 mg tablet 10 mg PO ONCE PRN (Reason: insomnia) Qty: 30 4RF tamsulosin 0.4 mg capsule 0.4 mg PO QPM Qty: 90 3RF finasteride 5 mg tablet 5 mg PO QAM Qty: 90 1RF atorvastatin 20 mg tablet 0 mg PO QAM Rx Instructions: Pt is unsure of this medication, Original Directions: 20mg by mouth daily Referrals Referrals: Delbert Delvalle DO [Primary Care Provider] -
--- NOTE | 2024-03-26 17:25 | XRay Report ---
XR chest 1V portable HISTORY: 78 years-old Male stroke alert acute strokelike symptoms COMPARISON: Chest CT 05/24/2019 TECHNIQUE: AP view the chest FINDINGS: Cardiomediastinal and hilar silhouettes are within normal limits. Atherosclerosis of aorta. No pneumo thorax, pleural effusion or airspace consolidation. Spondylitic spurring of the spine. IMPRESSION: No acute process. ACT 112: Negative or not required by law. The above report was generated using voice recognition software. It may contain grammatical, syntax o r spelling errors. Electronically signed by: Maximo Cespedes M.D. 03/26/2024 5:24 PM
[2024-03-26 17:28] LABS: Basophils # (auto) 0.04 K/uL (0.00-0.20); Basophils % (auto) 0.6 %; Eosinophils # (auto) 0.07 K/uL (0.00-0.50); Eosinophils % (auto) 1.1 %; Hematocrit (blood only) 39.7 % (42.0-52.0); Hemoglobin 13.6 g/dl (14.0-18.0); Immature Granulocytes # (auto) 0.02 K/uL (0.01-0.20); Immature Granulocytes % (auto) 0.3 %; Lymphocytes # (auto) 2.11 K/uL (1.20-3.40); Lymphocytes % (auto) 33.7 %; Mean Corpuscular Hemoglobin 31.2 pg (25.0-34.0); Mean Corpuscular Hgb Conc 34.3 g/dL (32.0-36.0); Mean Corpuscular Volume 91.1 fL (80.0-100.0); Mean Platelet Volume 10.1 fL (9.4-12.4); Monocytes # (auto) 0.51 K/uL (0.11-0.59); Monocytes % (auto) 8.1 %; Neutrophils # (auto) 3.51 K/uL (1.40-6.50); Neutrophils % (auto) 56.2 %; Platelet Count 214 K/uL (130-400); RDW Coefficient of Variation 12.8 % (11.5-14.5); RDW Standard Deviation 42.2 fL (36.4-46.3); Red Blood Count 4.36 M/uL (4.70-6.10); White Blood Count 6.26 K/ul (4.8-10.8)
[2024-03-26 17:31] LABS: Albumin Globulin Ratio 1.4 (0.9-2); Albumin Level 4.3 gm/dl (3.4-5.0); BUN Creatinine Ratio 18.9 (10-20); Bilirubin,Total 0.3 mg/dl (0.2-1.0); Creatinine Clr Calc Pharmacy 80.9 ml/min; Est GFR (African American) 89.1 ml/min; Est GFR (Non-African American) 76.9 ml/min; Globulin 3.1 gm/dl (2.5-4.0); Potassium 3.9 mmol/L (3.5-5.1); Total Protein 7.4 gm/dl (6.0-8.3)
[2024-03-26 17:39] LABS: Magnesium 1.6 mg/dl (1.7-2.4)
[2024-03-26 17:41] LABS: Partial Thromboplastin Ratio 0.9; Partial Thromboplastin Time 23 Seconds (21-31); Prothrombin Time 10.5 Seconds (9.0-12.0)
[2024-03-26 17:46] LABS: Troponin I High Sensitivity 7.2 pg/ml (0-20)
[2024-03-26] MEDS: OPTIRAY 320 125ml IV ONE (17:55)
--- NOTE | 2024-03-26 18:43 | CT Scan Report ---
CT angio head w con, CT angio neck with con, CT head/brain wo con CLINICAL HISTORY: 78 years-old Male with neuro deficit, acute stroke suspected. Acute stroke like symptoms COMPARISON STUDY: None TECHNIQUE: Unenhanced axial CT scan of the brain is performed. Subsequently, following the IV adminis tration of 118 cc of Optiray, CT angiogram of the head and neck was performed from the aortic arch to the skull apex. Images are reviewed in the axial, sagittal, and coronal planes. 3-D MIPS images are created and assessed. IV contrast was administered without complication. All measurements were obtain ed according to NASCET criteria. A dose lowering technique was utilized adhering to the principles of ALARA. CT DOSE: 1189.8 mGy.cm FINDINGS: CT BRAIN: There is no acute intracranial hemorrhage, midline shift, hydrocephalus, intracranial mass, territori al ischemia or abnormal extra-axial collections. No abnormal intra-axial or extra-axial enhancement. Partially imaged polypoid mucosal thickening of the dependent right maxillary sinus. Mastoid air cell s are clear. Unremarkable soft tissues and orbits.. No calvarial fracture. Paranasal sinuses are douglas r. CT ANGIOGRAM OF THE HEAD AND NECK: Three-vessel morphology of the thoracic aortic arch. Patent common carotid arteries. Prominent athero sclerotic plaque the carotid bulbs. Less than 50% stenosis on the left and approximately 50% stenosis on the right. The bilateral anterior and middle cerebral arteries are also patent. 3 mm saccular ane urysm involves the distal right M1 segment, image 140 series 5. Dominant left vertebral artery. Moder ate atherosclerosis of the origin of the right lateral vertebral arteries. The vertebrobasilar system and posterior cerebral arteries are widely patent. Dominant left vertebral artery. Dural sinuses yolanda ear patent. No pneumothorax identified. No acute fracture. IMPRESSION: 1. No acute intracranial abnormality identified. 2. No high-grade stenosis, arterial occlusion or dissection identified. 3. 3 mm saccular aneurysm of the distal right M1 segment of the middle cerebral artery without ruptur e. ACT 112: Negative or not required by law. The above report was generated using voice recognition software. It may contain grammatical, syntax o r spelling errors. Electronically signed by: Maximo Cespedes M.D. 03/26/2024 6:41 PM
--- NOTE | 2024-03-26 19:43 | History & Physical Report ---
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 fasting lipid panel Will get MRI of the brain without contrast and TTE A.m. hemoglobin A1c and fasting lipid panel PT/OT, permissive hypertension for now SQ Lovenox for DVT prophylaxis Heart healthy diet AM CBC, CMP, mag, PT/INR (2) Hypertension: Plan: Currently stable Hold atenolol tonight and allow permissive hypertension until MRI of the brain results are back (3) Hypomagnesemia: Plan: 1.6 in the ED Will give 3 bags 1 g IV mag sulfate now Monitor a.m. renal function electrolytes (4) Dyslipidemia: Plan: Continue home statin Follow a.m. fasting with panel (5) BPH (benign prostatic hyperplasia): Plan: Continue Flomax and finasteride Plan The patient was discussed with Dr. Rodgers at time of the admission History of Present Illness Chief Complaint: Paresthesias in the left upper extremity and left face Primary Care Provider: DO Kyle Dunaway is a 78-year-old male with a past medical history significant for hypertension, hyperlipidemia, BPH, and GERD who presented to the [facility] ED on 03/26/2024 with acute onset of left upper extremity numbness /cramping followed by approximately 10 seconds of numbness on the left side of his face. Patient was noted to be mildly hypertensive in the ED at 155/81 but otherwise stable. Labs were significant for magnesium 1.6 but otherwise unremarkable. Chest x-ray was read as negative for acute findings. CT of the head and brain without contrast and CTA of the head/neck were read as negative for acute intracranial abnormality. No high-grade stenosis, arterial occlusion or dissection identified. 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 The patient was given 324 mg aspirin. The case was discussed with neurology who did not feel the 3 mm saccular aneurysm was of clinical significance but did recommend admission for further TIA workup and management. Patient was sitting in bed in no acute distress at time of exam with his girlfriend, daughter, and granddaughter at bedside, history is obtained from all. Patient explains that he had been in his normal state of health and had just put a load of laundry into the washer around 3:30 PM when he had acute onset of left upper extremity paresthesias/heaviness and approximately 10 seconds of left facial numbness. States that his left upper extremity paresthesias lasted for approximately 2 to 3 minutes in total. Denies other symptoms such as headache, changes in vision, hearing, taste, smell, weakness in the upper or lower extremities, chest pain, palpitations, shortness of breath, nausea, vomiting, abdominal pain, dysuria/hematuria, melena, lower extremity swelling, or trauma. No previous history of CVA cardiac disease. No recent tobacco use, uses alcohol approximately once per week. He is a full code when his girlfriend and daughter to make medical decisions for him if he cannot make them himself. Please refer to Dr. Rodgers's attestation for any changes to the treatment plan Allergies Allergy/AdvReac Type Severity Reaction Status Date / Time No Known Drug Allergies Allergy Verified 03/26/24 18:34 Home Medications Medication Instructions Recorded Confirmed Type atenolol 50 mg tablet 25 mg (1/2 x 50 mg) PO QPM #45 tabs 07/30/23 03/26/24 Rx finasteride 5 mg tablet 5 mg PO QAM #90 tabs 12/03/23 03/26/24 Rx omeprazole 20 mg tablet,delayed 20 mg PO BID PRN K21.9 #180 tabs 01/18/24 03/26/24 Rx release zolpidem 10 mg tablet 10 mg PO ONCE PRN insomnia #30 tabs 01/18/24 03/26/24 Rx tamsulosin 0.4 mg capsule 0.4 mg PO QPM #90 caps 01/19/24 03/26/24 Rx atorvastatin 20 mg tablet 0 mg PO QAM 03/26/24 03/26/24 History Past Med/Surg History Problem List Hypomagnesemia Stroke-like symptoms Urinary frequency Bilateral kidney stones Hypertension (Chronic) Dyslipidemia (Chronic) Insomnia (Chronic) BPH (benign prostatic hyperplasia) (Chronic) Followed by urology. Erectile dysfunction Medical History History of skin cancer removed 12 years ago Frequent unifocal PVCs Laryngopharyngeal reflux Paralysis of right vocal fold Dysphonia Posterior glottic stenosis Evaluated by ENT for dysphonia within last 2 years, found to have significant post glottic stenosis. Should be evaluated emergently for any respiratory sxs if should arise in the future. Continuing workup with imaging Nephrolithiasis passed on own and also has current stones, no issues with them currently Urinary urgency Post herpetic neuralgia Surgical History History of hip replacement, total right, 2013 History of back surgery 2014, L3-5 Fusion History of cholecystectomy Family History Mother Breast cancer Father Dementia Hearing loss Brother Hearing loss Kidney stones Myocardial infarction Daughter Kidney stones Other No family history of adverse response to anesthesia No family history of bleeding disorder Denies family history of Ovarian cancer Prostate cancer Diabetes Heart disease Lung cancer Colorectal cancer Hypertension Stroke Asthma Social History Smoking Status: Never smoker Second Hand Exposure: No; Do You Dip or Chew Tobacco: No; Hx Alcohol Use: Yes Alcohol type: beer Alcohol Intake Frequency: 2-3 x/Week Alcohol Intake Frequency Comment: beer every other day Hx Substance Use: No Preferred Language: Sinhala Visual Impairment: Limited Hearing Ability: Hard of Hearing Patient Services Rep Required: No Beliefs That Will Affect Care: None marital status: Current Living Situation: Alone current occupational status: retired How many Children do You have: 3 Feels Safe at Home: Yes Childhood Exposure to Second-Hand Smoke: No Diet: regular caffeine: Yes (soda occasionally ) Dental Care, Regularly: Yes Physical Activity Frequency: Daily Physical Activity Frequency Comment: walks and play golf in summer Seatbelt Use: always Sunscreen Use: No Assistive Devices: None Review of Systems Review of Systems: All systems reviewed & are unremarkable except as noted in HPI & below Physical Exam Physical Exam: Physical Exam: General: In no acute distress, stated age, well-nourished, good hygiene HEENT: Normocephalic, atraumatic, no scleral icterus, pupils around round, symmetrical, and reactive to light, moist mucus membranes, trachea midline, no thyromegaly Chest/Pulm: No respiratory distress, symmetrical chest expansion, clear breath sounds throughout Cardiac: RRR, no murmurs noted Abdomen: Negative for ascites and bruising, normoactive bowel sounds, soft, non-tender to palpation throughout Musculoskeletal: Symmetrical and without signs of acute trauma, upper and lower extremities with full ROM, no atrophy, spasticity, or flaccidity Extremities: Radial, dorsalis pedis, and posterior tibial pulses are intact and symmetrical, no edema noted in the BL LE's Skin: Warm, dry, no rashes , lesions, or scars noted Neuro: Alert and oriented to person, place, month, year, and president, no focal defects, CN II-XII tested and intact, Negative cerebellar and pronator drift in the bilateral upper extremities, no tremors noted Psych: No acute distress, calm and cooperative during the exam Results & Data Results & Data Vital Signs (Past 12 Hours) Vital Signs Temp Pulse Pulse Resp BP BP Pulse Ox 03/26/24 18:37 69 21 155/81 H 94 03/26/24 17:05 68 03/26/24 17:01 68 18 94 03/26/24 16:36 36.6 C 77 16 141/78 H 94 O2 Del Method 03/26/24 18:37 Room Air 03/26/24 17:05 03/26/24 17:01 Room Air 03/26/24 16:36 Room Air Laboratory Results Abnormal lab results 03/26/24 03/26/24 Range/Units 17:03 17:24 RBC 4.36 L (4.70-6.10) M/uL Hgb 13.6 L (14.0-18.0) g/dl Hct 39.7 L (42.0-52.0) % Glucose 106 H (70-99(Fasting)) mg/dl POC Glucose 116 H (70-99) mg/dl Magnesium 1.6 L (1.7-2.4) mg/dl Diagnostic Findings Chest X-Ray 03/26/24 16:54 XR chest 1V portable HISTORY: 78 years-old Male stroke alert acute strokelike symptoms COMPARISON: Chest CT 05/24/2019 TECHNIQUE: AP view the chest FINDINGS: Cardiomediastinal and hilar silhouettes are within normal limits. Atherosclerosis of aorta. No pneumothorax, pleural effusion or airspace consolidation. Spondylitic spurring of the spine. IMPRESSION: No acute process. ACT 112: Negative or not required by law. The above report was generated using voice recognition software. It may contain grammatical, syntax or spelling errors. Electronically signed by: Maximo Cespedes M.D. 03/26/2024 5:[address] 03/26/24 17:12 CT angio head w con, CT angio neck with con, CT head/brain wo con CLINICAL HISTORY: 78 years-old Male with neuro deficit, acute stroke suspected. Acute stroke like symptoms COMPARISON STUDY: None TECHNIQUE: Unenhanced axial CT scan of the brain is performed. Subsequently, following the IV administration of 118 cc of Optiray, CT angiogram of the head and neck was performed from the aortic arch to the skull apex. Images are reviewed in the axial, sagittal, and coronal planes. 3-D MIPS images are created and assessed. IV contrast was administered without complication. All measurements were obtained according to NASCET criteria. A dose lowering technique was utilized adhering to the principles of ALARA. CT DOSE: 1189.8 mGy.cm FINDINGS: CT BRAIN: There is no acute intracranial hemorrhage, midline shift, hydrocephalus, intracranial mass, territorial ischemia or abnormal extra-axial collections. No abnormal intra-axial or extra-axial enhancement. Partially imaged polypoid mucosal thickening of the dependent right maxillary sinus. Mastoid air cells are clear. Unremarkable soft tissues and orbits.. No calvarial fracture. Paranasal sinuses are clear. CT ANGIOGRAM OF THE HEAD AND NECK: Three-vessel morphology of the thoracic aortic arch. Patent common carotid arteries. Prominent atherosclerotic plaque the carotid bulbs. Less than 50% stenosis on the left and approximately 50% stenosis on the right. The bilateral anterior and middle cerebral arteries are also patent. 3 mm saccular aneurysm involves the distal right M1 segment, image 140 series 5. Dominant left vertebral artery. Moderate atherosclerosis of the origin of the right lateral vertebral arteries. The vertebrobasilar system and posterior cerebral arteries are widely patent. Dominant left vertebral artery. Dural sinuses appear patent. No pneumothorax identified. No acute fracture. IMPRESSION: 1. No acute intracranial abnormality identified. 2. No high-grade stenosis, arterial occlusion or dissection identified. 3. 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 ACT 112: Negative or not required by law. The above report was generated using voice recognition software. It may contain grammatical, syntax or spelling errors. Electronically signed by: Maximo Cespedes M.D. 03/26/2024 6:41 PM Head CTA 03/26/24 17:12 CT angio head w con, CT angio neck with con, CT head/brain wo con CLINICAL HISTORY: 78 years-old Male with neuro deficit, acute stroke suspected. Acute stroke like symptoms COMPARISON STUDY: None TECHNIQUE: Unenhanced axial CT scan of the brain is performed. Subsequently, following the IV administration of 118 cc of Optiray, CT angiogram of the head and neck was performed from the aortic arch to the skull apex. Images are reviewed in the axial, sagittal, and coronal planes. 3-D MIPS images are created and assessed. IV contrast was administered without complication. All measurements were obtained according to NASCET criteria. A dose lowering technique was utilized adhering to the principles of ALARA. CT DOSE: 1189.8 mGy.cm FINDINGS: CT BRAIN: There is no acute intracranial hemorrhage, midline shift, hydrocephalus, intracranial mass, territorial ischemia or abnormal extra-axial collections. No abnormal intra-axial or extra-axial enhancement. Partially imaged polypoid mucosal thickening of the dependent right maxillary sinus. Mastoid air cells are clear. Unremarkable soft tissues and orbits.. No calvarial fracture. Paranasal sinuses are clear. CT ANGIOGRAM OF THE HEAD AND NECK: Three-vessel morphology of the thoracic aortic arch. Patent common carotid arteries. Prominent atherosclerotic plaque the carotid bulbs. Less than 50% stenosis on the left and approximately 50% stenosis on the right. The bilateral anterior and middle cerebral arteries are also patent. 3 mm saccular aneurysm involves the distal right M1 segment, image 140 series 5. Dominant left vertebral artery. Moderate atherosclerosis of the origin of the right lateral vertebral arteries. The vertebrobasilar system and posterior cerebral arteries are widely patent. Dominant left vertebral artery. Dural sinuses appear patent. No pneumothorax identified. No acute fracture. IMPRESSION: 1. No acute intracranial abnormality identified. 2. No high-grade stenosis, arterial occlusion or dissection identified. 3. 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 ACT 112: Negative or not required by law. The above report was generated using voice recognition software. It may contain grammatical, syntax or spelling errors. Electronically signed by: Maximo Cespedes M.D. 03/26/2024 6:41 PM Neck CTA 03/26/24 17:12 CT angio head w con, CT angio neck with con, CT head/brain wo con CLINICAL HISTORY: 78 years-old Male with neuro deficit, acute stroke suspected. Acute stroke like symptoms COMPARISON STUDY: None TECHNIQUE: Unenhanced axial CT scan of the brain is performed. Subsequently, following the IV administration of 118 cc of Optiray, CT angiogram of the head and neck was performed from the aortic arch to the skull apex. Images are reviewed in the axial, sagittal, and coronal planes. 3-D MIPS images are created and assessed. IV contrast was administered without complication. All measurements were obtained according to NASCET criteria. A dose lowering technique was utilized adhering to the principles of ALARA. CT DOSE: 1189.8 mGy.cm FINDINGS: CT BRAIN: There is no acute intracranial hemorrhage, midline shift, hydrocephalus, intracranial mass, territorial ischemia or abnormal extra-axial collections. No abnormal intra-axial or extra-axial enhancement. Partially imaged polypoid mucosal thickening of the dependent right maxillary sinus. Mastoid air cells are clear. Unremarkable soft tissues and orbits.. No calvarial fracture. Paranasal sinuses are clear. CT ANGIOGRAM OF THE HEAD AND NECK: Three-vessel morphology of the thoracic aortic arch. Patent common carotid arteries. Prominent atherosclerotic plaque the carotid bulbs. Less than 50% stenosis on the left and approximately 50% stenosis on the right. The bilateral anterior and middle cerebral arteries are also patent. 3 mm saccular aneurysm involves the distal right M1 segment, image 140 series 5. Dominant left vertebral artery. Moderate atherosclerosis of the origin of the right lateral vertebral arteries. The vertebrobasilar system and posterior cerebral arteries are widely patent. Dominant left vertebral artery. Dural sinuses appear patent. No pneumothorax identified. No acute fracture. IMPRESSION: 1. No acute intracranial abnormality identified. 2. No high-grade stenosis, arterial occlusion or dissection identified. 3. 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 ACT 112: Negative or not required by law. The above report was generated using voice recognition software. It may contain grammatical, syntax or spelling errors. Electronically signed by: Maximo Cespedes M.D. 03/26/2024 6:41 PM Code Status & VTE Plan Code Status Full code VTE Prophylaxis Plan VTE Prophylaxis will be ordered: Yes Supervising Physician Co-Signing Physician Notes Patient seen and examined, chart reviewed, case discussed with RIAZ Shields and and I agree with the assessment and plan as above. In brief, patient is a pleasant 78yo male presenting with transient LUE numbness, clumsiness and facial tingling. Symptoms have resolved. Imaging and workup as above unrevealing thus far - patient with a 3mm saccular aneurysm of the right distal M1 segment of middle cerebral artery without rupture. This was discussed with Neurology at time of Code Stroke. ON exam patient is afebrile, mildly hypertensive AA&O, NAD Skin intact, no rashes HEENT - MMM, Neck supple +S1/S2, regular, no m/r/g Lungs CTA Abd soft, NT/ND Ext warm, well perfused Neuro- AA&O x 4, CN grossly intact, MS 5/5 in UE/LE bilaterally Labs and images reviewed Assessment/Plan 78yo male presenting with transient left arm numbness CT imaging as above -Check MRI -Check Echo -Lipid panel and HgbA1C -ASA, increased Lipitor to 40mg po daily -Remainder as above PG Care Time/CCT Total # of Minutes Spent Total Time Spent with Patient: Total time spent is greater than 50% in coordination of care (as documented) at patient's floor/unit and/or counseling patient: C[place] [address] INT INP/OBS CARE 3/75MIN Patient Type Established Medical Decision Making High Complexity Diagnoses Stroke-like symptoms R29.90 Hypertension I10 Hypomagnesemia E83.42 Dyslipidemia E78.5 BPH (benign prostatic hyperplasia) N40.0
[2024-03-26] MEDS ORDERED: PHARMACIST DISCHARGE MED REC CONSULT PRN (19:49)
[2024-03-26] MEDS: ASPIRIN CHEW 324 MG PO STA (20:06)
[2024-03-26] MEDS: MAGNESIUM SULFATE / D5W 1 GM/100 ML BAG IV SCH (20:07)
[2024-03-26] MEDS ORDERED: ACETAMINOPHEN 325 MG TAB PO PRN (20:14)
[2024-03-27 00:56] VITALS: RESP 18
[2024-03-27] MEDS ORDERED: PANTOprazole 40 MG TAB PO PRN (01:03)
[2024-03-27] MEDS: TAMSULOSIN HCL 0.4 MG CAP PO SCH (01:35)
[2024-03-27] MEDS: ENOXAPARIN INJ 40 MG/0.4 ML SYR SQ SCH (05:59)
[2024-03-27 07:07] LABS: Basophils # (auto) 0.04 K/uL (0.00-0.20); Basophils % (auto) 0.7 %; Eosinophils # (auto) 0.12 K/uL (0.00-0.50); Eosinophils % (auto) 2.2 %; Hematocrit (blood only) 37.6 % (42.0-52.0); Hemoglobin 12.4 g/dl (14.0-18.0); Immature Granulocytes # (auto) 0.02 K/uL (0.01-0.20); Immature Granulocytes % (auto) 0.4 %; Lymphocytes # (auto) 1.89 K/uL (1.20-3.40); Lymphocytes % (auto) 34.9 %; Mean Corpuscular Hemoglobin 30.2 pg (25.0-34.0); Mean Corpuscular Volume 91.7 fL (80.0-100.0); Mean Platelet Volume 9.8 fL (9.4-12.4); Monocytes # (auto) 0.49 K/uL (0.11-0.59); Neutrophils # (auto) 2.86 K/uL (1.40-6.50); Neutrophils % (auto) 52.8 %; Platelet Count 192 K/uL (130-400); RDW Standard Deviation 43.4 fL (36.4-46.3); White Blood Count 5.42 K/ul (4.8-10.8)
[2024-03-27 07:26] LABS: Albumin Globulin Ratio 1.4 (0.9-2); Albumin Level 3.8 gm/dl (3.4-5.0); BUN Creatinine Ratio 18.2 (10-20); Bilirubin,Total 0.5 mg/dl (0.2-1.0); Calcium 8.5 mg/dl (8.6-10.3); Chol HDL Ratio 3.9 (0-5); Creatinine Clr Calc Pharmacy 86.5 ml/min; Est GFR (Non-African American) 82.9 ml/min; Globulin 2.7 gm/dl (2.5-4.0); Potassium 3.8 mmol/L (3.5-5.1); Total Protein 6.5 gm/dl (6.0-8.3)
[2024-03-27 07:37] LABS: Prothrombin Time 10.9 Seconds (9.0-12.0)
[2024-03-27 08:40] LABS: Estimated Average Glucose 140 mg/dl; Hemoglobin A1C 6.5 % (4.5-5.6)
[2024-03-27] MEDS: ASPIRIN 81 MG ECTAB PO SCH (08:49)
[2024-03-27] MEDS: ATORVASTATIN 40 MG TAB PO SCH (08:49)
[2024-03-27] MEDS: FINASTERIDE 5 MG TAB PO SCH (08:49)
[2024-03-27] MEDS: ATENOLOL 25 MG TABLET PO SCH (09:18)
--- NOTE | 2024-03-27 10:28 | Hospitalist Progress Note ---
Date of Service March 27, 2024 Assessment & Plan (1) Stroke-like symptoms: Plan: Brain MRI scan is pending. His symptoms have resolved. He will be discharged home today, March 27, if brain MRI scan is negative. A small saccular aneurysm was noted on head and neck CTA on admission involving the right middle cerebral artery that does not require attention at this time. (2) Hypertension: Plan: Stable. Atenolol has been restarted. (3) Hypomagnesemia: Plan: Mild on admission. Corrected with replacement therapy (4) Dyslipidemia: Plan: Stable. Continue usual statin therapy (5) BPH (benign prostatic hyperplasia): Plan: Stable. Continue Flomax and finasteride Plan Home todayMarch 27, if brain MRI scan is negative for acute CVA Admission and Anticipated Discharge Date Admission Date: March 26, 2024 Subjective Alert and oriented. Left-sided paresthesia has resolved. Brain MRI is pending. If negative then he will be discharged home. Head and neck CTA reveals a small saccular aneurysm of the middle cerebral artery that does not need attention at this time. Mild hypomagnesemia on admission has been corrected to 2.0. Atenolol has been restarted. He will be discharged home today, March 27, if brain MRI scan is negative Review of Systems 2 Review of Systems: Constitutionalno fever or chills ENTno blurred vision, no double vision, no epistaxis, no sore throat Respiratoryno cough, no wheezing, no shortness of breath Cardiacno palpitations, no chest pain, no syncope Michael nausea, vomiting, diarrhea, melena, hematochezia GUno urinary retention, no urinary incontinence, no dysuria, no hematuria Musculoskeletalno joint pain, no muscle tenderness Skinno bruising, no rashes, no pruritus Neurono isolated weakness, no paresthesia, no weakness Psychno depression, no anxiety Physical Exam 2 Physical Exam: General-alert and oriented x3, no fever, no chills HEENT-head atraumatic and normocephalic, pupils equal and reactive to light, extraocular muscles intact Neck-no lymphadenopathy or thyromegaly, trachea midline Chest-clear to auscultation. No rales, wheezing or rhonchi Cardiac-regular rate and rhythm, normal S1 and S2 Abdomen-normal bowel sounds, no hepatosplenomegaly Extremities-no cyanosis, clubbing, or edema Neuro-cranial nerves II through XII intact, motor and sensory function within normal limits, strength symmetrical, no focal deficits Psych-normal affect, normal mood Results & Data Results & Data Vital Signs (Past 12 Hours) Vital Signs Temp Pulse Pulse Resp BP BP BP 03/27/24 08:23 36.6 C 68 18 145/78 H 03/27/24 07:46 57 L 03/27/24 04:00 36.8 C 58 L 18 135/79 03/27/24 00:50 36.5 C 62 18 149/82 H 03/27/24 00:30 70 03/26/24 23:32 63 03/26/24 22:33 60 16 150/88 H Pulse Ox O2 Del Method 03/27/24 08:23 92 Room Air 03/27/24 07:46 03/27/24 04:00 94 Room Air 03/27/24 00:50 95 Room Air 03/27/24 00:30 03/26/24 23:32 03/26/24 22:33 95 Laboratory Results 03/27/24 06:35 03/27/24 06:35 PG Care Time/CCT Total # of Minutes Spent Total Time Spent with Patient: Total time spent is greater than 50% in coordination of care (as documented) at patient's floor/unit and/or counseling patient: Coding Level of Care Code 53995 SUB INP/OBS CARE 3/50MIN Diagnoses Stroke-like symptoms R29.90 Hypertension I10 Hypomagnesemia E83.42 Dyslipidemia E78.5 BPH (benign prostatic hyperplasia) N40.0
[2024-03-27 11:35] VITALS: TEMP 98.2; O2SAT 94
--- NOTE | 2024-03-27 15:31 | Magnetic Resonance Report ---
MR brain wo con HISTORY: 78 years-old Male TIA workup acute stroke like symptoms COMPARISON: Head CT 03/26/2024 TECHNIQUE: Multiplanar multisequence MRI of the brain was obtained without IV contrast. FINDINGS: No restricted diffusion. Involutional changes with moderate T2/FLAIR hyperintense foci throughout the white matter. No acute intracranial hemorrhage, midline shift, abnormal extra-axial collection, hydr ocephalus or intra-axial mass. Senescent mineralization of the basal ganglia. Cerebral venous sinuses and major arterial flow voids appear patent. Skull, orbits and soft tissues are unremarkable. Polypo id mucosal thickening of the dependent right axillary sinus. IMPRESSION: 1. No acute intracranial abnormality. No acute or subacute infarct. 2. Involutional changes with moderate chronic microvascular ischemic disease. ACT 112: Negative or not required by law. The above report was generated using voice recognition software. It may contain grammatical, syntax o r spelling errors. Electronically signed by: Maximo Cespedes M.D. 03/27/2024 3:29 PM
[2024-03-27] MEDS ORDERED: STROKE PATIENT DISCHARGE STA (15:34)
--- NOTE | 2024-03-27 15:36 | Discharge Summary ---
Discharge Summary Date of Service March 27, 2024 Principal Dx & Hospital Course #1 = Principal Diagnosis (1) Stroke-like symptoms: Brain MRI scan is negative for CVA. His symptoms have resolved. He will be discharged home today, March 27. A small saccular aneurysm was noted on head and neck CTA on admission involving the right middle cerebral artery that does not require attention at this time. (2) Hypertension: Stable. Atenolol has been restarted. (3) Hypomagnesemia: Mild on admission. Corrected with replacement therapy (4) Dyslipidemia: Stable. Continue usual statin therapy (5) BPH (benign prostatic hyperplasia): Stable. Continue Flomax and finasteride Plan Home todayMarch 27 Admission HPI Per Admitting Provider Kyle is a 78-year-old male with a past medical history significant for hypertension, hyperlipidemia, BPH, and GERD who presented to the [facility] ED on 03/26/2024 with acute onset of left upper extremity numbness/cramping followed by approximately 10 seconds of numbness on the left side of his face. Patient was noted to be mildly hypertensive in the ED at 155/81 but otherwise stable. Labs were significant for magnesium 1.6 but otherwise unremarkable. Chest x-ray was read as negative for acute findings. CT of the head and brain without contrast and CTA of the head/neck were read as negative for acute intracranial abnormality. No high-grade stenosis, arterial occlusion or dissection identified. 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 The patient was given 324 mg aspirin. The case was discussed with neurology who did not feel the 3 mm saccular aneurysm was of clinical significance but did recommend admission for further TIA workup and management. Patient was sitting in bed in no acute distress at time of exam with his girlfriend, daughter, and granddaughter at bedside, history is obtained from all. Patient explains that he had been in his normal state of health and had just put a load of laundry into the washer around 3:30 PM when he had acute onset of left upper extremity paresthesias/heaviness and approximately 10 seconds of left facial numbness. States that his left upper extremity paresthesias lasted for approximately 2 to 3 minutes in total. Denies other symptoms such as headache, changes in vision, hearing, taste, smell, weakness in the upper or lower extremities, chest pain, palpitations, shortness of breath, nausea, vomiting, abdominal pain, dysuria/hematuria, melena, lower extremity swelling, or trauma. No previous history of CVA cardiac disease. No recent tobacco use, uses alcohol approximately once per week. He is a full code when his girlfriend and daughter to make medical decisions for him if he cannot make them himself. Please refer to Dr. Rodgers's attestation for any changes to the treatment plan Discharge Exam General-alert and oriented x3, no fever, no chills HEENT-head atraumatic and normocephalic, pupils equal and reactive to light, extraocular muscles intact Neck-no lymphadenopathy or thyromegaly, trachea midline Chest-clear to auscultation. No rales, wheezing or rhonchi Cardiac-regular rate and rhythm, normal S1 and S2 Abdomen-normal bowel sounds, no hepatosplenomegaly Extremities-no cyanosis, clubbing, or edema Neuro-cranial nerves II through XII intact, motor and sensory function within normal limits, strength symmetrical, no focal deficits Psych-normal affect, normal mood Discharge Plan Discharge Items Patient Disposition: Home - Self-Care Reason For Visit: TIA SYMPTOMS, LOW MAG Discharge Diagnosis: Facial paresthesia, hypomagnesemia, strokelike symptoms Activity: Resume your previous activity Non-emergency contact: Primary Care Provider Call non-emergency contact if: your symptoms worsen Follow-up/Referrals: Delbert Delvalle DO [Primary Care Provider] - Diet: Regular and Heart Healthy Addtl Attending Provider Instructions: All medications remain the same Pending Studies at Discharge: No Stand-Alone Forms: [employer], Smoking Cessation Medications and DC Order Prescriptions: Continued atenolol 50 mg tablet 25 mg PO QPM Qty: 45 3RF omeprazole 20 mg tablet,delayed release (DR/EC) 20 mg PO BID PRN (Reason: K21.9) Qty: 180 3RF Rx Instructions: Take 1 capsule by mouth twice daily 30 minutes before a meal with protein zolpidem 10 mg tablet 10 mg PO ONCE PRN (Reason: insomnia) Qty: 30 4RF tamsulosin 0.4 mg capsule 0.4 mg PO QPM Qty: 90 3RF finasteride 5 mg tablet 5 mg PO QAM Qty: 90 1RF atorvastatin 20 mg tablet 0 mg PO QAM Rx Instructions: Pt is unsure of this medication, Original Directions: 20mg by mouth daily Discharge Orders: Discharge Order (Routine); Ordered 03/27/24 Ordered By: Feng Clifford/Other Patient Handouts: A1C Admission Data Admit Date/Time: 03/26/24 19:48 Attending Provider: Feng Lemus Admit Provider: [place] Ontiveros Primary Care Provider: Delbert Delvalle Other Providers: Damari Rodgers Hospital Stay Data Consultations 03/26/24 19:35 ED Decision to Admit Stat Diagnostic Imagining Performed 03/26/24 17:12 CT angio head w con Stat CT angio neck with con Stat CT head/brain wo con Stat 03/27/24 20:14 MR brain wo con Routine Pending Results Patient Have Any Pending Studies at Discharge: No Discharge Instructions Given to Patient (Per Discharging Provider) All medications remain the same Total Time Total Time Spent Total Time Spent (In Minutes): 45 minutes Coding Level of Care Code 55245 INP/OBS DISCH >30 MIN Diagnoses Stroke-like symptoms R29.90 Hypertension I10 Hypomagnesemia E83.42 Dyslipidemia E78.5 BPH (benign prostatic hyperplasia) N40.0
[2024-03-27 15:45] VITALS: BP 149/82; PULSE 69
--- NOTE | 2024-03-27 21:48 | Electrocardiogram Report ---
Test Reason : Blood Pressure : */* mmHG Vent. Rate : 73 BPM Atrial Rate : 73 BPM P-R Int : 160 ms QRS Dur : 80 ms QT Int : 426 ms P-R-T Axes : 60 40 40 degrees QTcB Int : 469 ms Normal sinus rhythm Nonspecific ST abnormality Abnormal ECG When compared with ECG of 01-Aug-2019 08:50, No significant change was found Confirmed by Simeon Staples ([id number]) on 03/27/2024 9:48:11 PM Referred By: REFERRED SELF Confirmed By: Simeon Staples
== END 2024-03-27 16:05 | disposition home or self-care (01) ==
LOC: 2N 16:31 → EDINP 16:31 → ED 16:31 → SUATTDRO 19:48 → 2N 03-27 00:10